=== PATIENT | female | born 1960 | race Asian ===

== ENCOUNTER 2017-02-07 12:04 | Inpatient (IN) | payer OTHER ==
[~2017-02-07] VITALS: Ht 160 cm; Wt 61.2 kg
[2017-02-07 12:15] VITALS: BP 236/119; TEMP 97.7
[2017-02-07] MEDS ORDERED: METFORMIN HYDR500 MG PO (12:24)
[2017-02-07] MEDS ORDERED: BENICAR40 MG PO (12:24)
[2017-02-07] MEDS ORDERED: GLIP10TA55 PO (12:25)
[2017-02-07] MEDS ORDERED: CELEXA20 MG PO (12:25)
[2017-02-07] MEDS ORDERED: CLON0.1T16 PO (12:25)
[2017-02-07 13:10] VITALS: BP 213/121
[2017-02-07 13:38] LABS: PLATELET COUNT 276 K/uL (152-353)
[2017-02-07 13:51] LABS: SODIUM 135 mmol/L (136-145)
[2017-02-07 14:03] LABS: PARTIAL THROMBOPLASTIN TIME 25.2 SECONDS (24.5-33.6)
[2017-02-07 14:24] VITALS: BP 204/113
[2017-02-07 15:24] VITALS: BP 189/98
[2017-02-07 16:30] VITALS: BP 230/137
[2017-02-07 17:54] VITALS: BP 217/116
[2017-02-08] VITALS (7 sets, daily range): BP systolic 155–199; BP diastolic 92–109; TEMP 98.9–99.6; Ht 160 cm; Wt 61.2 kg
--- NOTE | 2017-02-08 02:54 | NUR ---
02/07/17 2130 PATIENT TO ROOM 1108 VIA WHEELCHAIR ORIENTED PATIENT TO ROOM, CALL LIGHT WITHIN REACH. TAYLOR SOLITARIO RN PRESENT FOR ASSESSMENT. 20 G TO RT WRIST INTACT. CAYETANO, WOVEN BLIND LOOM TENDER
--- NOTE | 2017-02-08 03:41 | NUR ---
02/07/17 2246 PATIENT HAD ELEVATED BLOOD PRESSURE OF 199/100. ENALAPRILAT 5MG IV PUSH GIVEN. RECHECK BLOOD PRESSURE.
--- NOTE | 2017-02-08 03:45 | NUR ---
02/08/17 0000 BLOOD PRESSURE RECHECKED 162/98.
--- NOTE | 2017-02-08 09:15 | NUR ---
PT BP REPORTED TO CARRIE WILCOX. ORDER TO GIVE LOSARTAN AND RECHECK.
--- NOTE | 2017-02-08 09:24 | NUR ---
PT REFUSED INSULIN FOR BS AT 206. WANTS TO RECHECK BS AT LUNCH.
[2017-02-08 10:25] LABS: PLATELET COUNT 270 K/uL (152-353)
[2017-02-08 10:38] LABS: SODIUM 136 mmol/L (136-145)
[2017-02-08 10:45] LABS: POTASSIUM 2.3 mmol/L (3.6-5.2)
--- NOTE | 2017-02-08 12:00 | NUR ---
VITALS REPORTED TO CARRIE WILCOX. 1300- DR MCKEON AT BS. NEW ORDERS GIVEN PER BRENDEN AND DR MCKEON FOR HYDRALZINE NOW AND AT 1600. WILL RECHECK AFTER ADMINISTRATION
--- NOTE | 2017-02-08 16:00 | NUR ---
BP 155/95. NEXT DOSE OF HYDRALAZINE GIVEN.
[2017-02-09] VITALS (7 sets, daily range): BP systolic 120–230; BP diastolic 90–112; TEMP 98–98.8
--- NOTE | 2017-02-09 02:14 | NUR ---
02/08/172207 PATIENT BLOOD SUGAR 190, PATIENT REFUSED SLIDING SCALE COVERAGE.
[2017-02-09 06:04] LABS: POTASSIUM 2.8 mmol/L (3.6-5.2); SODIUM 138 mmol/L (136-145)
[2017-02-09 06:14] LABS: PLATELET COUNT 232 K/uL (152-353)
--- NOTE | 2017-02-09 16:15 | NUR ---
1610 B/P 215/110 MANNUALLY IN LEFT ARM. CLONIDINE 0.2 MG GIVEN PO. SCHEDULED DOSE OF HYDRALAXINE 25 MG GIVEN PO. WILL CONTINUE TO MONITOR. NO H/A NOTED. ALERT AND ORIENTED. INSTRUCTED PATIENT TO CALL FOR ANY CHANGE IN CONDITION.
--- NOTE | 2017-02-09 16:39 | NUR ---
1637 B/P NOW 200/90 MANUALLY IN LEFT ARM.
--- NOTE | 2017-02-10 03:23 | NUR ---
02/09/171999 B/P 180/100 02/09/17 2300 B/P 160/80 02/10/17 0320 B/P 140/70
[2017-02-10 04:00] VITALS: BP 140/72; TEMP 98.7
[2017-02-10 05:28] LABS: PLATELET COUNT 256 K/uL (152-353)
[2017-02-10 05:53] LABS: POTASSIUM 3.3 mmol/L (3.6-5.2); SODIUM 137 mmol/L (136-145)
[2017-02-10 07:51] VITALS: BP 136/86; TEMP 98.6
[2017-02-10 12:00] VITALS: BP 194/90; TEMP 98.8
[2017-02-10 15:55] VITALS: BP 178/98; TEMP 98.2
[2017-02-10 20:09] VITALS: BP 145/93; TEMP 99.2
[2017-02-11] VITALS: BP 137/77; TEMP 98.4
[2017-02-11 04:00] VITALS: BP 152/86; TEMP 98.4
[2017-02-11 05:18] LABS: PLATELET COUNT 242 K/uL (152-353)
[2017-02-11 05:37] LABS: POTASSIUM 3.3 mmol/L (3.6-5.2); SODIUM 137 mmol/L (136-145)
[2017-02-11 08:00] VITALS: BP 180/84; TEMP 98.5
[2017-02-11 12:19] VITALS: BP 162/88; TEMP 99.5
[2017-02-11] MEDS ORDERED: HYDR25TA57 PO (13:25)
[2017-02-11] MEDS ORDERED: AMLODIPINE BESYLATE PO (13:25)
[2017-02-11] MEDS ORDERED: GLUCOTROL 5MG TAB PO (13:25)
[2017-02-11] MEDS ORDERED: ATOR20TA2 PO (13:25)
[2017-02-11] MEDS ORDERED: GLUCOPHAGE 500 MG PO (13:25)
[2017-02-11] MEDS ORDERED: HCTZ 25MG TAB PO (13:25)
--- NOTE | 2017-02-11 16:10 | NUR ---
IV D/C'd. APPOINTMENT SCHEDULED WITH Ciarra GUZMAN 02/19/17 AT 230 PM. ARRANGEMENTS MADE FOR MEDICATION DEANA OWEN. DISCHARGE INSTRUCTIONS SIGNED AND GIVEN. Pt. EXIT OUT OF FRONT ENTRANCE AMBULATING.
== END 2017-02-11 16:00 | disposition home or self-care (01) | DRG 305 ==
LOC: ED 12:04 → MED/SURG 19:00
PROVIDERS: Specialist; ADMIT Family Medicine
DX: I16.0 Hypertensive urgency (principal); E11.9 Type 2 diabetes mellitus without complications
CPT/HCPCS: 36415; 36591; 80053; 80061; 80307; 81000; 82550; 82553; 82948; 83036; 83735; 84484; 85027; 85610; 85730; 93005; 96374; J0360; J1815

== ENCOUNTER 2017-02-12 11:48 | Emergency (ER) | payer OTHER ==
[~2017-02-12] VITALS: Ht 162.6 cm; Wt 59.0 kg
[~2017-02-12 11:48] MED LIST: AMLODIPINE BESYLATE PO; ATOR20TA2 PO; BENICAR40 MG PO; CELEXA20 MG PO; CLON0.1T16 PO; GLIP10TA55 PO; GLUCOPHAGE 500 MG PO; GLUCOTROL 5MG TAB PO; HCTZ 25MG TAB PO; HYDR25TA57 PO; METFORMIN HYDR500 MG PO
[2017-02-12 15:58] VITALS: BP 179/93; TEMP 98.4
== END 2017-02-12 16:00 | disposition home or self-care (01) ==
LOC: ED 11:48
DX: T78.3XXA Angioneurotic edema, initial encounter (principal); T46.4X5A Adverse effect of angiotensin-converting-enzyme inhibitors, initial encounter
CPT/HCPCS: 96372; 99283; J1200; J1885

== ENCOUNTER 2018-03-15 14:17 | Emergency (ER) | payer OTHER ==
[~2018-03-15] VITALS: Ht 162.6 cm; Wt 59.0 kg
[2018-03-15 15:26] VITALS: BP 150/86; TEMP 102
== END 2018-03-15 15:29 | disposition home or self-care (01) ==
LOC: ED 14:17
DX: J11.1 Influenza due to unidentified influenza virus with other respiratory manifestations (principal)
CPT/HCPCS: 87502; 99282

== ENCOUNTER 2018-07-08 19:17 | Emergency (ER) | payer OTHER ==
[~2018-07-08] VITALS: Ht 162.6 cm; Wt 59.0 kg
[2018-07-08 20:34] LABS: PLATELET COUNT 263 K/uL (152-353)
[2018-07-08 20:45] LABS: POTASSIUM 3.4 mmol/L (3.6-5.2); SODIUM 129 mmol/L (136-145)
[2018-07-08 21:37] VITALS: BP 120/84; TEMP 97.7
== END 2018-07-08 21:45 | disposition home or self-care (01) ==
LOC: ED 19:17
PROVIDERS: Emergency Medicine
DX: R51 Headache (principal); I10 Essential (primary) hypertension
CPT/HCPCS: 80053; 82550; 82553; 84484; 85027; 93005; 99283

== ENCOUNTER 2021-01-12 13:49 | Emergency (ER) | payer OTHER ==
[~2021-01-12] VITALS: Ht 162.6 cm; Wt 59.0 kg
[2021-01-12 14:56] LABS: PLATELET COUNT 293 K/uL (152-353)
[2021-01-12 15:05] LABS: POTASSIUM 4.3 mmol/L (3.6-5.2)
[2021-01-12 15:10] LABS: PARTIAL THROMBOPLASTIN TIME 26.2 SECONDS (24.5-33.6)
[2021-01-12 15:55] VITALS: BP 137/75; TEMP 98.4
== END 2021-01-12 15:55 | disposition home or self-care (01) ==
LOC: ED 13:49
PROVIDERS: Hospitalist
DX: M79.661 Pain in right lower leg (principal)
CPT/HCPCS: 80053; 85027; 85610; 85730; 96372; 99283; J1885